=== PATIENT | female | born 1985 | race Caucasian/White ===

== ENCOUNTER 2022-12-25 18:34 | Inpatient (IN) ==
[2022-12-25] MEDS ORDERED: IOPAMIDOL 100 ML BOTTLE IV ONE (18:35)
[2022-12-25] MEDS ORDERED: diphenhydrAMINE 50 MG/ML VIAL IV ONE (20:31)
[2022-12-25] MEDS ORDERED: PROCHLORPERAZINE 10 MG/2 ML VIAL IV ONE (20:31)
--- NOTE | 2022-12-25 21:03 | Emergency Department Note ---
HPI General Chief complaint: Nausea/Vomiting/Diarrhea Stated complaint: N/V/D Time Seen by Provider: 12/25/22 20:26 Source: patient Mode of arrival: ambulatory Limitations: no limitations History of Present Illness HPI Narrative: Narrative: 37-year-old female presents the emergency department complaining of abdominal pain. As well as nausea vomiting. Says she been vomiting for the last 3 to 4 days as well as having loose stools. States that she went to a minor care today they gave her IV fluids and Zofran and then sent her home. She is worried that there may be something more going on that is worrying her. She is worried she may have an ileus or possibly an obstruction. She is having pain mainly in the right upper quadrant no pain anywhere else. No fevers or chills. Denying any other symptoms otherwise. Related Data Home Medications Medication Instructions Recorded Confirmed albuterol sulfate 90 mcg/actuation 1 inh inhalation ONCE 08/10/20 12/25/22 aerosol inhaler alprazolam 0.5 mg tablet (Xanax) 0.5 mg PO QHS PRN 08/10/20 12/25/22 ezetimibe 10 mg tablet (Zetia) 10 mg PO QDAY 08/10/20 12/25/22 insulin degludec 100 unit/mL (3 10 unit subcut QHS 08/10/20 12/25/22 mL) subcutaneous pen (Tresiba FlexTouch U-100 insulin) insulin lispro 100 unit/mL 1 sliding scale dose subcut 08/10/20 12/25/22 subcutaneous solution (Admelog USEASDIRECTD U-100 Insulin lispro) metoprolol succinate 50 mg 50 mg PO QDAY 08/10/20 12/25/22 tablet,extended release 24 hr Previous Rx's Medication Instructions Recorded loperamide 2 mg tablet (Imodium 2 mg PO Q4H PRN loose stool #30 12/25/22 A-D) tabs ondansetron 4 mg disintegrating 4 mg PO Q6H PRN nausea and 12/25/22 tablet vomiting #20 tabs Allergies Allergy/AdvReac Type Severity Reaction Status Date / Time latex Allergy Mild Swelling Verified 12/25/22 18:44 Review of Systems ROS ROS Narrative: Narrative: All systems ED: reviewed and negative except as stated. PFSH Narrative Patient History Narrative: Narrative: Medical/Surgical/Family History All Active Problems (Updated 12/25/22 @ 23:21 by Philipp Pope DO) DKA, type 1 (Acute) Acute hyperkalemia (Acute) Depression (Acute) History of appendectomy (Acute) Hx of cholecystectomy (Acute) Abdominal pain (Acute) Ventricular premature complex (Acute) Asthma (Acute) Bronchitis (Acute) Diabetes mellitus (Acute) Anxiety (Acute) Abnormal glucose (Acute) Medical History (Updated 12/25/22 @ 23:21 by Philipp Pope DO) Abdominal pain Abnormal glucose Anxiety Asthma Bronchitis Depression Diabetes mellitus Ventricular premature complex Surgical History History of appendectomy Hx of cholecystectomy Social History Smoking Status: Never smoker Alcohol Intake Frequency: 2+ drinks per day Substance Use: does not use Exam Narrative Narrative: Narrative: Vital signs noted General: Awake. Alert. No distress. Skin: Warm. Dry. No rash. HEENT: NCAT. PERRL. EOMI. No conjunctivitis. Membranes moist. Neck: Good ROM. No meningeal signs. No stridor. Cardiovascular: RRR. Respiratory: No respiratory distress. Gastrointestinal: Abdomen soft. Tenderness when palpating the right upper quadrant in the epigastrium no pain anywhere else on exam. No distention. Back: No deformity. No CVAT. Musculoskeletal: No tenderness. No swelling. No erythema. No edema. Good peripheral pulses x 4 Neurological: No focal neurological deficits observed. General Limitations: no limitations Course Vital Signs Vital signs: Vital Signs Temperature 97.3 F 12/25/22 18:40 Pulse Rate 99 H 12/25/22 18:40 Respiratory Rate 18 12/25/22 18:40 Blood Pressure 136/89 12/25/22 18:40 Pulse Oximetry (%) 98 12/25/22 18:40 Oxygen Delivery Method Room Air 12/25/22 18:40 Temperature 97.3 F 12/25/22 18:40 Pulse Rate 110 H 12/25/22 21:46 Respiratory Rate 25 H 12/25/22 22:41 Blood Pressure 137/122 12/25/22 21:46 Pulse Oximetry (%) 97 12/25/22 22:41 Oxygen Delivery Method Room Air 12/25/22 18:40 [facility] Narrative Medical decision making narrative: Narrative: Patient presents to the emergency department complaining of epigastric and right upper quadrant pain. She has had a cholecystectomy she states. We will go ahead and get a CBC, CMP as well as a lipase as well as a CT of the abdomen pelvis rule out any other acute pathology. Where about possible ileus, obstruction, gastroenteritis, peptic ulcer, perforation of the abdomen. Patient given Compazine and Benadryl for nausea and vomiting. And Toradol for pain control. I did personally review and interpret the labs. CBC was unremarkable. CMP showed sodium of 126 that is normal when corrected with a glucose about 130. Potassium is elevated to 6.3, chloride 93 CO2 is 4 with an anion gap of 29. Glucose elevated to 334. Based on these findings and actually were about patient being in DKA so added on a VBG and lactate lactate is mildly elevated at 2.1 but patient's pH is 6.88. Based on this I went ahead and got an EKG as well she does have peaked T waves so I went ahead and stabilize the cardiac membrane by giving calcium gluconate IV as well as giving patient 10 units of insulin IV to which also help with her DKA as well as 10 of 1 hour albuterol to help with the potassium. I also ordered a beta hydroxybutyrate for ketones which I imagine are elevated. Patient is received a total of 2 L of IV fluids. And I will also start patient on insulin drip. Patient will be need to be admitted. I did personally review and interpret the CT and I did not see any acute findings. Direct radiology did read the CT as well and they actually showed that there is scattered colonic diverticula without CT evidence of diverticulitis and there is nonspecific bowel wall thickening along the colon which may be related to incomplete distention versus mild colitis. I do not think that is what is causing patient's abdominal pain actually think the DKA is was causing the abdominal pain. Patient will need to be admitted for further care. I spoke with Dr. Leonard who has agreed to admit the patient. 12-lead EKG interpretation: EKG done at 2255, and interpreted by myself and shows sinus tachycardia at a rate of 134, MT interval 83, QRS 84, QTc 410. There is no acute ST changes obvious hyperacute T waves no other signs of ischemia. No signs of hypertrophy, heart strain, heart block. No WPW/Brugada/HOCM. Impression is sinus tachycardia with hyperacute T waves but no ischemia. ECG rhythm strip interpretation: Patient was placed on the gambling monitor and I did personally review and interpret the ECG rhythm strip as sinus tachycardia with hyperacute T waves but no ectopy Total critical care time of 45 min including performance of history and physical exam, review of results, re-examinations, time spent documenting, order manager, review of old records, discussions with patient and family, discussions with oracle application consultant(s), discussion with admitting physician, completion of admission/transfer paperwork. This does not include time for any separately documented procedures.. Lab Data 12/25/22 21:04 12/25/22 21:04 Labs: Lab Results 12/25/22 12/25/22 12/25/22 Range/Units 21: 21: 21:05 WBC 9.4 (4.5-11.0) K/mcL RBC 5.21 (3.59-5.38) M/mcL Hgb 16.5 H (11.2-15.7) g/dL Hct 52.7 H (34.1-44.9) % POC Hct 53.0 H (36-48) MCV 101.2 H (80.0-100.0) fL MCH 31.7 (26.0-34.0) pg MCHC 31.3 (31.0-36.0) g/dL RDW 11.6 (11.5-14.5) % Plt Count 168 (140-440) K/mcL MPV 10.9 (8.8-12.5) fL Immature Gran % (Auto) 1.3 H (0.0-0.5) % Neut % (Auto) 66.7 (38.0-78.0) % Lymph % (Auto) 21.2 (15.5-49.0) % [place] % (Auto) 9.9 (1.0-12.0) % Eos % (Auto) 0.1 (0.0-7.0) % Baso % (Auto) 0.8 (0.0-2.0) % Lymph # (Auto) 2.00 (1.50-4.80) K/mcL [place] # (Auto) 0.93 H (0.10-0.90) K/mcL Eos # (Auto) 0.01 (0.00-0.70) K/mcL Baso # (Auto) 0.08 (0.00-0.30) K/mcL Immature Gran # 0.12 H (0.00-0.05) K/mcl Absolute Neutrophils 6.30 (1.80-8.00) K/mcL POC VBG pH (7.32-7.42) POC VBG pCO2 at Temp (41-51) POC VBG pO2 (25-40) POC VBG HCO3 (24-28) POC VBG Total CO2 (25-29) POC Venous O2 Sat (40-70) POC VBG Base Excess (-2-2) VBG Lactic Acid (0.5-2) POC Sodium 130 L (133-145) Sodium 126 L (133-145) mmol/L POC Potassium 6.3 H* (3.3-5.1) Potassium 6.3 H* (3.3-5.1) mmol/L POC Chloride 111 H (96-108) Chloride 93 L (96-108) mmol/L Carbon Dioxide 4 L* (22-30) mmol/L POC Total CO2 7.0 L* (22-30) Anion Gap 29.0 H (8.0-16.0) POC Anion Gap 19.0 H (8.0-16.0) POC BUN 14 (6-20) BUN 12 (6-20) mg/dL Creatinine 0.9 (0.6-1.1) mg/dL POC Creatinine 0.6 (0.6-1.2) GFR Calculation 83 Glucose 334 H (70-105) mg/dL POC Glucose 331 H (70-105) Calcium 9.4 (8.6-10.4) mg/dL POC WB Ioniz Calcium 1.19 (1.16-1.32) Total Bilirubin 0.8 (0.1-1.0) mg/dL AST 44 H (<32) U/L ALT 46 H (<40) U/L Alkaline Phosphatase 116 (39-117) U/L Total Protein 8.8 H (5.9-8.4) gm/dL Albumin 5.3 H (3.2-5.2) gm/dL Globulin 3.5 (2.2-3.7) gm/dL Albumin/Globulin Ratio 1.5 (1.0-2.3) Lipase 22 (7-60) U/L 06/05/23 06/05/23 06/05/23 Range/Units 21:24 21:42 23:00 WBC (4.5-11.0) K/mcL RBC (3.59-5.38) M/mcL Hgb (11.2-15.7) g/dL Hct (34.1-44.9) % POC Hct 53.0 H 52.0 H (36-48) MCV (80.0-100.0) fL MCH (26.0-34.0) pg MCHC (31.0-36.0) g/dL RDW (11.5-14.5) % Plt Count (140-440) K/mcL MPV (8.8-12.5) fL Immature Gran % (Auto) (0.0-0.5) % Neut % (Auto) (38.0-78.0) % Lymph % (Auto) (15.5-49.0) % [place] % (Auto) (1.0-12.0) % Eos % (Auto) (0.0-7.0) % Baso % (Auto) (0.0-2.0) % Lymph # (Auto) (1.50-4.80) K/mcL [place] # (Auto) (0.10-0.90) K/mcL Eos # (Auto) (0.00-0.70) K/mcL Baso # (Auto) (0.00-0.30) K/mcL Immature Gran # (0.00-0.05) K/mcl Absolute Neutrophils (1.80-8.00) K/mcL POC VBG pH 6.88 L* (7.32-7.42) POC VBG pCO2 at Temp 25.4 L (41-51) POC VBG pO2 32 (25-40) POC VBG HCO3 4.8 L* (24-28) POC VBG Total CO2 6.0 L (25-29) POC Venous O2 Sat 30.0 L (40-70) POC VBG Base Excess -28.0 L (-2-2) VBG Lactic Acid 2.3 H (0.5-2) POC Sodium 123 L 131 L (133-145) Sodium (133-145) mmol/L POC Potassium > 9.0 H* 6.0 H* (3.3-5.1) Potassium (3.3-5.1) mmol/L POC Chloride 110 H 109 H (96-108) Chloride (96-108) mmol/L Carbon Dioxide (22-30) mmol/L POC Total CO2 8.0 L* 8.0 L* (22-30) Anion Gap (8.0-16.0) POC Anion Gap TNP 21.0 H (8.0-16.0) POC BUN 20 13 (6-20) BUN (6-20) mg/dL Creatinine (0.6-1.1) mg/dL POC Creatinine 0.7 0.6 (0.6-1.2) GFR Calculation Glucose (70-105) mg/dL POC Glucose 333 H 355 H (70-105) Calcium (8.6-10.4) mg/dL POC WB Ioniz Calcium 1.04 L 1.19 (1.16-1.32) Total Bilirubin (0.1-1.0) mg/dL AST (<32) U/L ALT (<40) U/L Alkaline Phosphatase (39-117) U/L Total Protein (5.9-8.4) gm/dL Albumin (3.2-5.2) gm/dL Globulin (2.2-3.7) gm/dL Albumin/Globulin Ratio (1.0-2.3) Lipase (7-60) U/L Discharge Plan Patient/Caregiver Discharge Instructions Pt seen by WAIST PLEATER/PA only: No Clinical Impression: DKA, type 1, Acute hyperkalemia Activity: increase activity as tolerated Patient Disposition: Xfer As Inpt ([facility]) Condition: Critical Follow up with: Kady Warren NP-C [Primary Care Provider] - Prescriptions: No Action loperamide [Imodium A-D] 2 mg tablet 2 mg PO Q4H PRN (Reason: loose stool) Qty: 30 0RF Rx Instructions: administer after each loose stool until symptoms controlled; do not exceed 8 mg per 24 hrs ondansetron 4 mg tablet,disintegrating 4 mg PO Q6H PRN (Reason: nausea and vomiting) Qty: 20 0RF metoprolol succinate 50 mg tablet extended release 24 hr 50 mg PO QDAY ezetimibe [Zetia] 10 mg tablet 10 mg PO QDAY alprazolam [Xanax] 0.5 mg tablet 0.5 mg PO QHS PRN albuterol sulfate 90 mcg/actuation HFA aerosol inhaler 1 inh INHALATION ONCE Tresiba FlexTouch U-100 100 unit/mL (3 mL) insulin pen 10 unit SUB-Q QHS insulin lispro [Admelog U-100 Insulin lispro] 100 unit/mL solution 1 sliding scale dose SUB-Q USEASDIRECTD
[2022-12-25 21:09] LABS: POC Calcium, Ionized 1.19 (1.16-1.32); POC Creatinine 0.6 (0.6-1.2); POC Potassium 6.3 (3.3-5.1)
[2022-12-25 21:28] LABS: POC Blood Urea Nitrogen 20 (6-20); POC Calcium, Ionized 1.04 (1.16-1.32); POC Chloride 110 (96-108); POC Creatinine 0.7 (0.6-1.2); POC Glucose, Random 333 (70-105); POC Potassium > 9.0 (3.3-5.1); POC Sodium 123 (133-145)
[2022-12-25 21:48] LABS: POC Calcium, Ionized 1.19 (1.16-1.32); POC Creatinine 0.6 (0.6-1.2)
[2022-12-25 22:17] LABS: Basophils # (Auto) 0.08 K/mcL (0.00-0.30); Basophils % (Auto) 0.8 % (0.0-2.0); Eosinophils # (Auto) 0.01 K/mcL (0.00-0.70); Eosinophils % (Auto) 0.1 % (0.0-7.0); Hematocrit 52.7 % (34.1-44.9); Hemoglobin 16.5 g/dL (11.2-15.7); Lymphocytes % (Auto) 21.2 % (15.5-49.0); Mean Cell Volume 101.2 fL (80.0-100.0); Mean Corpuscular HGB Conc 31.3 g/dL (31.0-36.0); Mean Platelet Volume 10.9 fL (8.8-12.5); Monocytes # (Auto) 0.93 K/mcL (0.10-0.90); Monocytes % (Auto) 9.9 % (1.0-12.0); Neutrophils % (Auto) 66.7 % (38.0-78.0); Platelet Count 168 K/mcL (140-440); RBC 5.21 M/mcL (3.59-5.38); Red Cell Distribution Width 11.6 % (11.5-14.5); WBC 9.4 K/mcL (4.5-11.0)
[2022-12-25 22:35] LABS: ALT/SGPT 46 U/L (<40); AST/SGOT 44 U/L (<32); Albumin 5.3 gm/dL (3.2-5.2); Albumin/Globulin Ratio 1.5 (1.0-2.3); Alkaline Phosphatase 116 U/L (39-117); Bilirubin,Total 0.8 mg/dL (0.1-1.0); Blood Urea Nitrogen 12 mg/dL (6-20); Calcium 9.4 mg/dL (8.6-10.4); Carbon Dioxide 4 mmol/L (22-30); Chloride 93 mmol/L (96-108); Globulin 3.5 gm/dL (2.2-3.7); Glomerular Filtration Rate 83; Glucose 334 mg/dL (70-105)
[2022-12-25] MEDS ORDERED: CALCIUM GLUCONATE 7 MEQ in DEXTROSE 5% IN WATER 50 ML IV ONE (22:52)
[2022-12-25] MEDS ORDERED: 0.9 % SODIUM CHLORIDE 1,000 ML IV ONE (22:52)
[2022-12-25] MEDS ORDERED: ALBUTEROL SULFATE 2.5 MG/3 ML NEBULIZER NEB ONE (22:52)
[2022-12-25] MEDS ORDERED: INSULIN REGULAR, HUMAN 1 UNIT/0.01 ML UNIT IV ONE (22:52)
[2022-12-25] MEDS ORDERED: CALCIUM GLUCONATE 4.65 MEQ/10 ML VIAL IV ONE (22:59)
[2022-12-25] MEDS ORDERED: INSULIN REGULAR, HUMAN 1 UNIT/0.01 ML UNIT ONE (23:22)
[2022-12-25 23:27] LABS: Appearance,Urine CLEAR (Clear); Bilirubin,Urine Negative (Negative); Color,Urine YELLOW; Culture Indicated,Urine No; Glucose,Urine (UA) >=500 mg/dL (Negative); Ketones,Urine 80 mg/dL (Negative); Leukocyte Esterase,Urine Negative /uL (Negative); Mucus,Urine FEW /hpf; Nitrate,Urine Negative (Negative); Protein,Urine 100 mg/dL (Negative); Urine Hyaline Cast 5 /lph (0-2); Urine RBC < 1 /hpf (0-3); Urine Squamous Epithelial Cell 2 /hpf (0-4); Urine WBC 1 /hpf (0-4); Urobilinogen,Urine Negative
[2022-12-25] MEDS ORDERED: MAGNESIUM SULFATE 2 GM/50 ML BAG IV PRN (23:34)
[2022-12-26 00:17] LABS: Beta Hydroxybutyrate 8.65 mmol/L (<0.27)
[2022-12-26] MEDS: INSULIN REGULAR, HUMAN 50 UNIT in 0.9 % SODIUM CHLORIDE 99.5 ML IV SCH ×6 (00:20→23:18)
[2022-12-26] MEDS: 0.9 % SODIUM CHLORIDE 1,000 ML IV SCH ×5 (00:25→20:21)
[2022-12-26] MEDS ORDERED: LORazepam 2 MG/ML VIAL IV PRN (00:43)
[2022-12-26] MEDS ORDERED: chlordiazePOXIDE 25 MG CAPSULE PO ONE ×2 (00:44→00:50)
[2022-12-26] MEDS ORDERED: LORazepam 2 MG/ML VIAL ONE (00:51)
[2022-12-26] MEDS ORDERED: HALOPERIDOL LACTATE 5 MG/ML VIAL IV ONE (01:00)
[2022-12-26] MEDS ORDERED: HALOPERIDOL LACTATE 5 MG/ML VIAL ONE (01:03)
[2022-12-26] MEDS ORDERED: SODIUM BICARBONATE 50 MEQ/50 ML VIAL IV ONE ×3 (01:16→03:48)
[2022-12-26] MEDS ORDERED: SODIUM BICARBONATE 50 MEQ/50 ML VIAL ONE ×4 (01:26→04:04)
[2022-12-26 01:32] LABS: POC Blood Urea Nitrogen 13 (6-20); POC CO2 < 5.0 (22-30); POC Calcium, Ionized 1.27 (1.16-1.32); POC Chloride 115 (96-108); POC Creatinine 0.7 (0.6-1.2); POC Glucose, Random 476 (70-105); POC Potassium 4.7 (3.3-5.1); POC Sodium 134 (133-145)
[2022-12-26 01:53] LABS: Amphetamine Screen,Urine None detected; Barbiturate Screen,Urine None detected; Benzodiazepines Screen,Urine Suspect positive; Cannabinoid Screen,Urine None detected; Cocaine Screen,Urine None detected; Opiate Screen,Urine None detected; Oxycodone, Urine Screen None detected; Phencyclidine Screen,Urine None detected
[2022-12-26] MEDS ORDERED: LACTATED RINGERS 1,000 ML IV ONE (01:55)
--- NOTE | 2022-12-26 02:16 | Internal Med History&Physical ---
HPI History of Present Illness Patient information: Note initiated : 12/26/22 at 1:57 am Service Date, if different from initiated Date: [] Patient: Lou Baum a 37 y/o F admitted on 12/26/22 for N/V/D. Chief Complaint: [] History of present illness: Ms. Baum is a 37 year old F Presents to minor care for nausea vomiting and lightheadedness and some mucousy stool. Also found to have some mildly elevated sugars. Was treated sent home. Patient came back to the ED complaining of continued abdominal pain nausea vomiting feeling like she is not getting any better. History is obtained from the chart as patient is encephalopathic at this time. Sounds like she has been vomiting for 3 to 4 days and having loose stools. Pain was noted in the right upper quadrant. In the ED she was mildly tachycardic and mildly tachypneic. Found to be in DKA. With a blood glucose 343 initially. Sodium was 126 but not corrected for hyperglycemia. She had a potassium of 6.3 and a bicarb of 4. Mild transaminitis. Beta hydroxybutyric acid 8.65. Lactate 2.3 initially but did increase. She was treated for hyper per kalemia in the ED. Given several liters of IV fluids. Insulin drip ordered but never started until she got to the ICU which is about the time that she started becoming agitated and restless tachycardic and tachypneic. Also found out that she was a heavy drinker using whiskey daily. Patient put on CIWA protocol and given IV Ativan. Her mental status continued to worsen and she became continually tachycardic and tachypneic. Stat VBG showed a pH of 6.75. Blood glucose had also been increasing as the insulin drip had not been started as ordered. Stat bicarb 3 Amps given. Shortly thereafter patient's vital signs and mentation started to gradually improved. Follow-up chemistry showed sodium at 134 and potassium down to 4.7. We will need to follow chemistry closely and may add potassium to IV fluids. preg screen neg Update: pt developed fever this morning, no leukcytosis, BC pending, no respiratory symptoms and UA not indicative of infection, ?etoh w/d, CT brain/abd/pelvis no acute but with fatty liver. pt drinks 2-6 drinks whiskey daily. mentation gradually improving, acid-base status responding to treatment, still critical state, blood pressure briefly hypotensive episodes, monitoring View of system review of Systems: Unable to gather accurate ROS given mentation PHYSICAL EXAM on admit General: Restless, mild acute Distress Eyes/N/T: EOMI, no scleral icterus, PERRL, dry MM Head/Neck: neck supple, full ROM, normocephalic atraumatic CV: Tachycardic but regular, No murmurs, normal s1/s2 Pulm: Clear b/l, no wheezing/rhonchi/rales, no respiratory distress Abd: soft, nontender, +BS x4 Ext: no clubbing/cyanosis/edema, nontender Neuro: Patient restless and poorly responsive but does follow some commands to partially open eyes to voice and squeezing hands to command. Moves all extremities spontaneously, no noticeable focal deficit Psychiatric: Skin: warm/dry, normal color PFSH PFSH All Active Problems (Updated 12/25/22 @ 23:21 by Philipp Pope DO) DKA, type 1 (Acute) Acute hyperkalemia (Acute) Depression (Acute) History of appendectomy (Acute) Hx of cholecystectomy (Acute) Abdominal pain (Acute) Ventricular premature complex (Acute) Asthma (Acute) Bronchitis (Acute) Diabetes mellitus (Acute) Anxiety (Acute) Abnormal glucose (Acute) Medical History (Updated 12/25/22 @ 23:21 by Philipp Pope DO) Abdominal pain Abnormal glucose Anxiety Asthma Bronchitis Depression Diabetes mellitus Ventricular premature complex Surgical History History of appendectomy Hx of cholecystectomy Social History smoking status: Never smoker alcohol intake frequency: 2+ drinks per day substance use type: does not use MEDS/ALLERGIES Home Medications and Allergies Home Medications Medication Instructions Recorded Confirmed Type albuterol sulfate 90 mcg/actuation 1 inh inhalation ONCE 08/10/20 12/26/22 History aerosol inhaler alprazolam 0.5 mg tablet (Xanax) 0.5 mg PO QHS PRN Anxiety 08/10/20 12/26/22 History ezetimibe 10 mg tablet (Zetia) 10 mg PO QDAY 08/10/20 12/26/22 History insulin degludec 100 unit/mL (3 10 unit subcut QHS 08/10/20 12/26/22 History mL) subcutaneous pen (Tresiba FlexTouch U-100 insulin) insulin lispro 100 unit/mL 1 sliding scale dose subcut 08/10/20 12/26/22 History subcutaneous solution (Admelog USEASDIRECTD U-100 Insulin lispro) metoprolol succinate 50 mg 50 mg PO QDAY 08/10/20 12/26/22 History tablet,extended release 24 hr loperamide 2 mg tablet (Imodium 2 mg PO Q4H PRN loose stool #30 12/25/22 12/26/22 Rx A-D) tabs ondansetron 4 mg disintegrating 4 mg PO Q6H PRN nausea and 12/25/22 12/26/22 Rx tablet vomiting #20 tabs Allergies Allergy/AdvReac Type Severity Reaction Status Date / Time latex Allergy Mild Swelling Verified 12/25/22 18:44 EXAM Constitutional Vitals: Temp Pulse Resp BP Pulse Ox O2 Del Method 96.9 F L 158 H 34 H 128/107 100 Room Air 12/26/22 00:47 12/26/22 01:39 12/26/22 01:39 12/26/22 01:31 12/26/22 01:39 12/26/22 00:47 DATA Data Completed and Pending Labs: Labs from last 24 hours 12/26/22 12/26/22 12/26/22 01:29 01:23 01:20 WBC RBC Hgb Hct POC Hct 51.0 H MCV MCH MCHC RDW Plt Count MPV Immature Gran % (Auto) Neut % (Auto) Lymph % (Auto) [place] % (Auto) Eos % (Auto) Baso % (Auto) Lymph # (Auto) [place] # (Auto) Eos # (Auto) Baso # (Auto) Immature Gran # Absolute Neutrophils POC VBG pH 6.75 L* POC VBG pCO2 at Temp 14.2 L* POC VBG pO2 80 H POC VBG HCO3 2.0 L* POC VBG Total CO2 < 5.0 L POC Venous O2 Sat 77.0 H POC VBG Base Excess < -30.0 L* VBG Lactic Acid 4.8 H* POC Sodium 134 Sodium POC Potassium 4.7 Potassium POC Chloride 115 H Chloride Carbon Dioxide POC Total CO2 < 5.0 L* Anion Gap POC Anion Gap TNP POC BUN 13 BUN Creatinine POC Creatinine 0.7 GFR Calculation Glucose POC Glucose 476 H* Osmolality Pending Calcium POC WB Ioniz Calcium 1.27 Magnesium Total Bilirubin AST ALT Alkaline Phosphatase Total Protein Albumin Globulin Albumin/Globulin Ratio Lipase Beta-Hydroxybutyrate Prolactin Urine Color Urine Appearance Urine pH Ur Specific [place] Urine Protein Urine Glucose (UA) Urine Ketones Urine Occult Blood Urine Nitrate Urine Bilirubin Urine Urobilinogen Ur Leukocyte Esterase Urine RBC Urine WBC Ur Squamous Epith Cells Urine Bacteria Hyaline Casts Urine Mucus Ur Culture Indicated? Urine Opiates Screen Ur Opiates Confirm Ur Oxycodone Screen U Oxycod/Oxymor Confirm Urine Methadone Screen Ur Methadone Confirm Ur Barbiturates Screen Ur Barbiturate Confirm Ur Phencyclidine Scrn Urine PCP Confirm Ur Amphetamines Screen U Amphetamines Confirm U Benzodiazepines Scrn Ur Benzodiazepine, Qnt Urine Cocaine Screen Urine Cocaine Confirm U Cannabinoids Confirm U Marijuana (THC) Screen 12/26/22 12/25/22 12/25/22 01:20 23:00 22:00 WBC RBC Hgb Hct POC Hct MCV MCH MCHC RDW Plt Count MPV Immature Gran % (Auto) Neut % (Auto) Lymph % (Auto) [place] % (Auto) Eos % (Auto) Baso % (Auto) Lymph # (Auto) [place] # (Auto) Eos # (Auto) Baso # (Auto) Immature Gran # Absolute Neutrophils POC VBG pH 6.88 L* POC VBG pCO2 at Temp 25.4 L POC VBG pO2 32 POC VBG HCO3 4.8 L* POC VBG Total CO2 6.0 L POC Venous O2 Sat 30.0 L POC VBG Base Excess -28.0 L VBG Lactic Acid 2.3 H POC Sodium Sodium POC Potassium Potassium POC Chloride Chloride Carbon Dioxide POC Total CO2 Anion Gap POC Anion Gap POC BUN BUN Creatinine POC Creatinine GFR Calculation Glucose POC Glucose Osmolality Calcium POC WB Ioniz Calcium Magnesium 2.5 Total Bilirubin AST ALT Alkaline Phosphatase Total Protein Albumin Globulin Albumin/Globulin Ratio Lipase Beta-Hydroxybutyrate Prolactin Pending Urine Color Urine Appearance Urine pH Ur Specific [place] Urine Protein Urine Glucose (UA) Urine Ketones Urine Occult Blood Urine Nitrate Urine Bilirubin Urine Urobilinogen Ur Leukocyte Esterase Urine RBC Urine WBC Ur Squamous Epith Cells Urine Bacteria Hyaline Casts Urine Mucus Ur Culture Indicated? Urine Opiates Screen Ur Opiates Confirm Ur Oxycodone Screen U Oxycod/Oxymor Confirm Urine Methadone Screen Ur Methadone Confirm Ur Barbiturates Screen Ur Barbiturate Confirm Ur Phencyclidine Scrn Urine PCP Confirm Ur Amphetamines Screen U Amphetamines Confirm U Benzodiazepines Scrn Ur Benzodiazepine, Qnt Urine Cocaine Screen Urine Cocaine Confirm U Cannabinoids Confirm U Marijuana (THC) Screen 12/25/22 12/25/22 12/25/22 22:00 21:56 21:56 WBC RBC Hgb Hct POC Hct MCV MCH MCHC RDW Plt Count MPV Immature Gran % (Auto) Neut % (Auto) Lymph % (Auto) [place] % (Auto) Eos % (Auto) Baso % (Auto) Lymph # (Auto) [place] # (Auto) Eos # (Auto) Baso # (Auto) Immature Gran # Absolute Neutrophils POC VBG pH POC VBG pCO2 at Temp POC VBG pO2 POC VBG HCO3 POC VBG Total CO2 POC Venous O2 Sat POC VBG Base Excess VBG Lactic Acid POC Sodium Sodium POC Potassium Potassium POC Chloride Chloride Carbon Dioxide POC Total CO2 Anion Gap POC Anion Gap POC BUN BUN Creatinine POC Creatinine GFR Calculation Glucose POC Glucose Osmolality Calcium POC WB Ioniz Calcium Magnesium Total Bilirubin AST ALT Alkaline Phosphatase Total Protein Albumin Globulin Albumin/Globulin Ratio Lipase Beta-Hydroxybutyrate 8.65 H Prolactin Urine Color Yellow Urine Appearance Clear Urine pH 5.0 Ur Specific [place] 1.020 Urine Protein 100 A Urine Glucose (UA) >=500 A Urine Ketones 80 A Urine Occult Blood 0.20 Urine Nitrate Negative Urine Bilirubin Negative Urine Urobilinogen Negative Ur Leukocyte Esterase Negative Urine RBC < 1 Urine WBC 1 Ur Squamous Epith Cells 2 Urine Bacteria None Hyaline Casts 5 H Urine Mucus Few A Ur Culture Indicated? No Urine Opiates Screen None detected Ur Opiates Confirm TNP Ur Oxycodone Screen None detected U Oxycod/Oxymor Confirm TNP Urine Methadone Screen None detected Ur Methadone Confirm TNP Ur Barbiturates Screen None detected Ur Barbiturate Confirm TNP Ur Phencyclidine Scrn None detected Urine PCP Confirm TNP Ur Amphetamines Screen None detected U Amphetamines Confirm TNP U Benzodiazepines Scrn Suspect positive A Ur Benzodiazepine, Qnt Pending Urine Cocaine Screen None detected Urine Cocaine Confirm TNP U Cannabinoids Confirm TNP U Marijuana (THC) Screen None detected 12/25/22 12/25/22 12/25/22 21:42 21:24 21:05 WBC RBC Hgb Hct POC Hct 52.0 H 53.0 H 53.0 H MCV MCH MCHC RDW Plt Count MPV Immature Gran % (Auto) Neut % (Auto) Lymph % (Auto) [place] % (Auto) Eos % (Auto) Baso % (Auto) Lymph # (Auto) [place] # (Auto) Eos # (Auto) Baso # (Auto) Immature Gran # Absolute Neutrophils POC VBG pH POC VBG pCO2 at Temp POC VBG pO2 POC VBG HCO3 POC VBG Total CO2 POC Venous O2 Sat POC VBG Base Excess VBG Lactic Acid POC Sodium 131 L 123 L 130 L Sodium POC Potassium 6.0 H* > 9.0 H* 6.3 H* Potassium POC Chloride 109 H 110 H 111 H Chloride Carbon Dioxide POC Total CO2 8.0 L* 8.0 L* 7.0 L* Anion Gap POC Anion Gap 21.0 H TNP 19.0 H POC BUN 13 20 14 BUN Creatinine POC Creatinine 0.6 0.7 0.6 GFR Calculation Glucose POC Glucose 355 H 333 H 331 H Osmolality Calcium POC WB Ioniz Calcium 1.19 1.04 L 1.19 Magnesium Total Bilirubin AST ALT Alkaline Phosphatase Total Protein Albumin Globulin Albumin/Globulin Ratio Lipase Beta-Hydroxybutyrate Prolactin Urine Color Urine Appearance Urine pH Ur Specific [place] Urine Protein Urine Glucose (UA) Urine Ketones Urine Occult Blood Urine Nitrate Urine Bilirubin Urine Urobilinogen Ur Leukocyte Esterase Urine RBC Urine WBC Ur Squamous Epith Cells Urine Bacteria Hyaline Casts Urine Mucus Ur Culture Indicated? Urine Opiates Screen Ur Opiates Confirm Ur Oxycodone Screen U Oxycod/Oxymor Confirm Urine Methadone Screen Ur Methadone Confirm Ur Barbiturates Screen Ur Barbiturate Confirm Ur Phencyclidine Scrn Urine PCP Confirm Ur Amphetamines Screen U Amphetamines Confirm U Benzodiazepines Scrn Ur Benzodiazepine, Qnt Urine Cocaine Screen Urine Cocaine Confirm U Cannabinoids Confirm U Marijuana (THC) Screen 12/25/22 12/25/22 21:04 21:04 WBC 9.4 RBC 5.21 Hgb 16.5 H Hct 52.7 H POC Hct MCV 101.2 H MCH 31.7 MCHC 31.3 RDW 11.6 Plt Count 168 MPV 10.9 Immature Gran % (Auto) 1.3 H Neut % (Auto) 66.7 Lymph % (Auto) 21.2 [place] % (Auto) 9.9 Eos % (Auto) 0.1 Baso % (Auto) 0.8 Lymph # (Auto) 2.00 [place] # (Auto) 0.93 H Eos # (Auto) 0.01 Baso # (Auto) 0.08 Immature Gran # 0.12 H Absolute Neutrophils 6.30 POC VBG pH POC VBG pCO2 at Temp POC VBG pO2 POC VBG HCO3 POC VBG Total CO2 POC Venous O2 Sat POC VBG Base Excess VBG Lactic Acid POC Sodium Sodium 126 L POC Potassium Potassium 6.3 H* POC Chloride Chloride 93 L Carbon Dioxide 4 L* POC Total CO2 Anion Gap 29.0 H POC Anion Gap POC BUN BUN 12 Creatinine 0.9 POC Creatinine GFR Calculation 83 Glucose 334 H POC Glucose Osmolality Calcium 9.4 POC WB Ioniz Calcium Magnesium Total Bilirubin 0.8 AST 44 H ALT 46 H Alkaline Phosphatase 116 Total Protein 8.8 H Albumin 5.3 H Globulin 3.5 Albumin/Globulin Ratio 1.5 Lipase 22 Beta-Hydroxybutyrate Prolactin Urine Color Urine Appearance Urine pH Ur Specific [place] Urine Protein Urine Glucose (UA) Urine Ketones Urine Occult Blood Urine Nitrate Urine Bilirubin Urine Urobilinogen Ur Leukocyte Esterase Urine RBC Urine WBC Ur Squamous Epith Cells Urine Bacteria Hyaline Casts Urine Mucus Ur Culture Indicated? Urine Opiates Screen Ur Opiates Confirm Ur Oxycodone Screen U Oxycod/Oxymor Confirm Urine Methadone Screen Ur Methadone Confirm Ur Barbiturates Screen Ur Barbiturate Confirm Ur Phencyclidine Scrn Urine PCP Confirm Ur Amphetamines Screen U Amphetamines Confirm U Benzodiazepines Scrn Ur Benzodiazepine, Qnt Urine Cocaine Screen Urine Cocaine Confirm U Cannabinoids Confirm U Marijuana (THC) Screen A/P Narrative A/P Narrative: A: *DKA(DM1), Severe: -a1c 9.9 *Severe AG Met acidosis with lactic acidosis: 2/2 above *Metabolic encephalopathy, severe: 2/2 above, ?seizure o/n *N/V/Diarrhea/Abd pain: 2/2 above -CT imaging unremarkable except for fatty liver *Hyperkalemia: w/spiked t-waves, s/p treatment *Hyponatremia & severe Hypophosphatemia: *Volume depletion/hemoconcentration: *ETOH abuse: and suspected component of withdrawal -2 up to 6 drinks per day *HTN/HLD: *Anxiety/depression: On Ativan at home *h/o asthma: *Transaminitis: 2/2 fatty liver *Macrocytosis: Check B12/folate, likely etoh induced P: -s/p NS bolus, LR IVF, add KCl as needed, >NS IVF -insulin gtt until gap closed -q2h vgb and 2amps bicarb until pH>7.0 -Monitor renal function/UOP -Monitor and replace electrolytes as needed -UDS -CT brain -f/u bhb -monitor Lfts -CIWA, MVI/thiamine/folate, prn ativan -cont home BB, prn nebs -b12/folate -a1c -Home medication reconciliation -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
[2022-12-26] MEDS ORDERED: IPRATROPIUM/ALBUTEROL 3 ML AMPUL.NEB NEB PRN (02:23)
[2022-12-26] MEDS ORDERED: SENNOSIDES 1 TABLET PO PRN (02:23)
[2022-12-26] MEDS ORDERED: POLYETHYLENE GLYCOL 3350 17 GM PACKET PO PRN (02:23)
[2022-12-26] MEDS ORDERED: ONDANSETRON 4 MG/2 ML VIAL IV PRN (02:23)
[2022-12-26] MEDS ORDERED: ACETAMINOPHEN 325 MG TABLET PO PRN (02:23)
[2022-12-26] MEDS ORDERED: POTASSIUM CHLORIDE 20 MEQ TABLET PO PRN (02:23)
[2022-12-26] MEDS ORDERED: POTASSIUM CHLORIDE 40 MEQ in DEXTROSE 5% IN WATER 500 ML IV PRN (02:23)
[2022-12-26] MEDS ORDERED: MAGNESIUM SULFATE 2 GM/50 ML BAG IV PRN (02:23)
[2022-12-26] MEDS: THIAMINE 100 MG in 0.9 % SODIUM CHLORIDE 50 ML IV SCH ×2 (02:36→08:12)
[2022-12-26] MEDS: DEXTROSE 5%-NS 1,000 ML IV SCH ×2 (02:36→05:10)
[2022-12-26 03:48] LABS: POC Calcium, Ionized 1.1 (1.16-1.32); POC Creatinine 0.7 (0.6-1.2); POC Potassium 4.9 (3.3-5.1)
--- NOTE | 2022-12-26 04:59 | Cat Scan Report ---
INDICATION: altered mental status COMPARISON: None. TECHNIQUE: Axial noncontrast-enhanced images through the brain. Sagittally and coronally reformatted images. FINDINGS: Examination was initially interpreted by [facility] This patient is unable to hold still and there are some motion induced artifact. Cerebral hemispheres:Negative. No intra-axial abnormality. No intra-axial hematoma. No localized mass effect.Brain volume is within normal limits for age. Periventricular white matter is negative without significant attenuation abnormality. Brainstem and cerebellum:No intra-axial abnormality Extra-axial:No acute hemorrhage. No subdural or epidural hematoma. No subarachnoid hemorrhage. Basilar cisterns are normal Calvarial:No calvarial fracture. No lytic lesion Temporal bones are negative. No destructive lesions Soft tissue, orbits, sinuses:Orbits and visualized facial soft tissues and paranasal sinuses are negative IMPRESSION: Negative noncontrast enhanced brain CT scan The exam was performed using radiation dose optimization techniques including, but not limited to, automated exposure control, adjustment of the mA and/or kV according to patient size and use of iterative reconstruction technique. Interpreted and Authenticated by: Kristofer Darling 12/26/22
[2022-12-26] MEDS ORDERED: INSULIN REGULAR, HUMAN 1 UNIT/0.01 ML UNIT ONE ×2 (05:35→23:13)
[2022-12-26 05:37] LABS: POC Calcium, Ionized 1.14 (1.16-1.32); POC Creatinine 0.6 (0.6-1.2); POC Potassium 3.9 (3.3-5.1)
--- NOTE | 2022-12-26 05:37 | Cat Scan Report ---
INDICATION: epigastric pain poss pancreatitis COMPARISON: Previous examination dated 04/22/2014 TECHNIQUE: Axial images were obtained through the abdomen and pelvis. Sagittally and coronally reformatted images. 70 mL Isovue 370 injected intravenously. Oral contrast material was not administered FINDINGS: Examination was initially interpreted by [facility] Lung bases:Negative. No pulmonary parenchymal nodule. No pleural fluid or pericardial fluid Liver:Low density liver consistent with hepatic steatosis. No focal mass. Liver contour is smooth Gallbladder, bilary:No calcified gallstones. No gallbladder wall thickening. No dilated intra or extrahepatic bile ducts. Spleen:No splenomegaly. Normal enhancement of splenic and portal veins. Pancreas:No pancreatic mass. No peripancreatic abnormality Adrenal glands:Negative Kidneys,ureters,bladder:No solid renal mass. No hydronephrosis. No obstructing or nonobstructing calculi. No hydroureter. No ureteral calculus. No bladder stone. No detectable bladder mass. Gastrointestinal:No detectable colonic mass. There is no diverticulitis. Negative small bowel. No mechanical small bowel obstruction. No bowel wall thickening. No focal abnormality. Negative stomach and duodenum. No focal abnormality. Appendix: The appendix is apparently removed. Patient gives a history of previous appendectomy. There is a small appendiceal stump with a 4 mm calcified abnormality consistent with appendicolith. No evidence for appendicitis. Vascular:Negative abdominal aorta. Superior mesenteric artery and celiac trunk are normal. Normal opacification of the inferior mesenteric artery Lymphatic:No retroperitoneal or mesenteric adenopathy Mesentery, peritoneum: No free intraperitoneal fluid. No mesenteric or retroperitoneal mass. No intra-abdominal abscess. Reproductive:Uterus is anteflexed. No adnexal mass Musculoskeletal:No lumbar compression fractures. Sacrum and pelvis are negative. No hip fracture. No abdominal wall or inguinal hernia IMPRESSION: 1. Hepatic steatosis 2. Previous cholecystectomy 3. Previous appendectomy 4. No acute abnormality The exam was performed using radiation dose optimization techniques including, but not limited to, automated exposure control, adjustment of the mA and/or kV according to patient size and use of iterative reconstruction technique. Interpreted and Authenticated by: Kristofer Darling 12/26/22
[2022-12-26] MEDS ORDERED: ACETAMINOPHEN 1,000 MG/100 ML BAG IV PRN (06:23)
[2022-12-26 06:30] LABS: Basophils # (Auto) 0.02 K/mcL (0.00-0.30); Basophils % (Auto) 0.2 % (0.0-2.0); Eosinophils # (Auto) 0 K/mcL (0.00-0.70); Eosinophils % (Auto) 0 % (0.0-7.0); Hematocrit 40.3 % (34.1-44.9); Hemoglobin 12.9 g/dL (11.2-15.7); Lymphocytes % (Auto) 9.1 % (15.5-49.0); Mean Cell Volume 98.3 fL (80.0-100.0); Mean Platelet Volume 9.6 fL (8.8-12.5); Monocytes # (Auto) 0.92 K/mcL (0.10-0.90); Monocytes % (Auto) 9.3 % (1.0-12.0); Neutrophils % (Auto) 80.8 % (38.0-78.0); Platelet Count 128 K/mcL (140-440); Red Cell Distribution Width 11.7 % (11.5-14.5); WBC 9.9 K/mcL (4.5-11.0)
--- NOTE | 2022-12-26 07:03 | EKG ---
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 Measurements Intervals [place] Rate: 105 P: 64 [place]: 134 QRS: 59 QRSD: 83 T: 46 QT: 310 QTc: 410 Interpretive Statements Sinus tachycardia Electronically Signed On 12-26-2022 7:03:46 PDT by Kristofer Evans M.D. /store/[email or web address]/[id number]
[2022-12-26] MEDS: PANTOPRAZOLE 40 MG VIAL IV SCH (07:17)
[2022-12-26] MEDS ORDERED: ALPRAZolam 0.5 MG TABLET PO PRN (08:06)
[2022-12-26] MEDS ORDERED: THIAMINE 100 MG/ML VIAL ONE (08:12)
[2022-12-26] MEDS: ENOXAPARIN 40 MG/0.4 ML SYRINGE SQ SCH (08:14)
[2022-12-26] MEDS: MULTIVIT,THER IRON,CA,FA & MIN 1 TABLET PO SCH (08:14)
[2022-12-26] MEDS: FOLIC ACID 1 MG TABLET PO SCH (08:14)
[2022-12-26 08:17] LABS: ALT/SGPT 39 U/L (<40); AST/SGOT 49 U/L (<32); Albumin/Globulin Ratio 1.5 (1.0-2.3); Alkaline Phosphatase 81 U/L (39-117); Bilirubin,Direct < 0.2 mg/dL (0-0.3); Bilirubin,Total 0.6 mg/dL (0.1-1.0); Blood Urea Nitrogen 9 mg/dL (6-20); Calcium 8.2 mg/dL (8.6-10.4); Carbon Dioxide 6 mmol/L (22-30); Chloride 106 mmol/L (96-108); Globulin 2.6 gm/dL (2.2-3.7); Glomerular Filtration Rate 83; Glucose 238 mg/dL (70-105); Lactate Dehydrogenase 258 U/L (135-225); Phosphorous 0.7 mg/dL (2.5-4.5); Triglycerides 453 mg/dL (<150); Uric Acid 7.5 mg/dL (2.5-8.0)
[2022-12-26] MEDS: INSULIN GLARGINE, HUMAN 1 UNIT/0.01 ML SQ SCH (08:32)
[2022-12-26] MEDS ORDERED: POTASSIUM PHOSPHATE 40 MEQ in DEXTROSE 5% IN WATER 500 ML IV ONE ×2 (09:00→16:23)
[2022-12-26] MEDS: METOPROLOL SUCCINATE 50 MG TAB.XL.24H PO SCH (09:26)
[2022-12-26] MEDS: NEUTRA PHOS 1 PACKET PO SCH ×2 (09:38→21:07)
[2022-12-26] MEDS: PHOSPHORUS 250 MG TABLET PO SCH ×2 (09:38→21:07)
[2022-12-26 10:30] LABS: Hemoglobin A1C 9.9 % Hgb (4.0-6.0)
[2022-12-26] MEDS: DEXTROSE 5%-1/2NS 1,000 ML IV SCH ×2 (11:10→19:29)
[2022-12-26 15:59] LABS: Phosphorous 0.5 mg/dL (2.5-4.5)
[2022-12-26 16:02] LABS: Blood Urea Nitrogen 6 mg/dL (6-20); Calcium 7.9 mg/dL (8.6-10.4); Carbon Dioxide 14 mmol/L (22-30); Chloride 110 mmol/L (96-108); Glomerular Filtration Rate 118; Glucose 123 mg/dL (70-105)
[2022-12-26] MEDS ORDERED: POTASSIUM CHLORIDE 80 MEQ in DEXTROSE 5% IN WATER 1,000 ML IV ONE (16:25)
[2022-12-27] MEDS: DEXTROSE 5%-1/2NS 1,000 ML IV SCH ×4 (00:54→17:03)
[2022-12-27] MEDS ORDERED: DEXTROSE 50% 50 ML VIAL IV PRN ×2 (02:04→16:42)
[2022-12-27] MEDS ORDERED: DEXTROSE 50% 50 ML SYRINGE IV ONE (02:06)
[2022-12-27] MEDS: 0.9 % SODIUM CHLORIDE 1,000 ML IV SCH (03:10)
[2022-12-27] MEDS ORDERED: DEXTROSE 50% 50 ML SYRINGE IV PRN (06:30)
[2022-12-27 06:57] LABS: Basophils # (Auto) 0.02 K/mcL (0.00-0.30); Basophils % (Auto) 0.3 % (0.0-2.0); Eosinophils # (Auto) 0.01 K/mcL (0.00-0.70); Eosinophils % (Auto) 0.2 % (0.0-7.0); Hematocrit 36.7 % (34.1-44.9); Hemoglobin 12.6 g/dL (11.2-15.7); Lymphocytes # (Auto) 1.66 K/mcL (1.50-4.80); Lymphocytes % (Auto) 25.7 % (15.5-49.0); Mean Cell Volume 92.2 fL (80.0-100.0); Mean Corpuscular HGB Conc 34.3 g/dL (31.0-36.0); Mean Platelet Volume 10.2 fL (8.8-12.5); Monocytes # (Auto) 0.59 K/mcL (0.10-0.90); Monocytes % (Auto) 9.1 % (1.0-12.0); Neutrophils % (Auto) 64.4 % (38.0-78.0); Platelet Count 124 K/mcL (140-440); RBC 3.98 M/mcL (3.59-5.38); Red Cell Distribution Width 11.9 % (11.5-14.5); WBC 6.5 K/mcL (4.5-11.0)
[2022-12-27] MEDS: PANTOPRAZOLE 40 MG VIAL IV SCH (07:22)
[2022-12-27 07:24] LABS: Beta Hydroxybutyrate 0.16 mmol/L (<0.27)
[2022-12-27 07:26] LABS: ALT/SGPT 29 U/L (<40); AST/SGOT 45 U/L (<32); Albumin 3.6 gm/dL (3.2-5.2); Albumin/Globulin Ratio 1.8 (1.0-2.3); Alkaline Phosphatase 65 U/L (39-117); Bilirubin,Direct < 0.2 mg/dL (0-0.3); Bilirubin,Total 0.5 mg/dL (0.1-1.0); Blood Urea Nitrogen 2 mg/dL (6-20); Carbon Dioxide 15 mmol/L (22-30); Chloride 112 mmol/L (96-108); Glomerular Filtration Rate 125; Glucose 146 mg/dL (70-105); Lactate Dehydrogenase 266 U/L (135-225); Phosphorous 1.6 mg/dL (2.5-4.5); Triglycerides 75 mg/dL (<150)
[2022-12-27] MEDS: ENOXAPARIN 40 MG/0.4 ML SYRINGE SQ SCH (08:30)
[2022-12-27] MEDS: POTASSIUM CHLORIDE 20 MEQ TABLET PO PRN (08:30)
[2022-12-27] MEDS: METOPROLOL SUCCINATE 50 MG TAB.XL.24H PO SCH (08:31)
[2022-12-27] MEDS: MULTIVIT,THER IRON,CA,FA & MIN 1 TABLET PO SCH (08:31)
[2022-12-27] MEDS: FOLIC ACID 1 MG TABLET PO SCH (08:31)
[2022-12-27] MEDS ORDERED: INSULIN GLARGINE, HUMAN 1 UNIT/0.01 ML SQ SCH (09:00)
[2022-12-27] MEDS ORDERED: ALPRAZolam 0.5 MG TABLET PO PRN (09:18)
[2022-12-27] MEDS: THIAMINE 100 MG in 0.9 % SODIUM CHLORIDE 50 ML IV SCH (09:26)
[2022-12-27] MEDS: INSULIN GLARGINE, HUMAN 1 UNIT/0.01 ML SQ SCH (09:29)
[2022-12-27] MEDS ORDERED: POTASSIUM PHOSPHATE 40 MEQ in DEXTROSE 5% IN WATER 500 ML IV SCH (10:00)
[2022-12-27 10:17] LABS: ABG Methemoglobin 0.2 % (0.4-1.5); Total Hemoglobin 14.2 gm/Dl (12.0-15.0); VBG Base Excess -7 (-2-3); VBG HCO3 14.6 mmol/L (24.0-28.0); VBG Oxygen Saturation 90.8 % (40.0-70.0); VBG PCO2 22.1 mmHg (41.0-51.0); VBG PH 7.44 U (7.32-7.42); VBG Total CO2 15.3 mmol/L (25.0-29.0)
--- NOTE | 2022-12-27 14:22 | Internal Med Progress Note ---
SUBJECTIVE Subjective Patient information: Note initiated : 12/27/22 at 2:20 pm Service Date, if different from initiated Date: [] Patient: Lou Baum a 37 y/o F admitted on 12/26/22 for N/V/D. Chief Complaint: [] Additional PMFSH (Level 3 Only): Ms. Baum is a 37 year old F Presents to minor care for nausea vomiting and lightheadedness and some mucousy stool. Also found to have some mildly elevated sugars. Was treated sent home. Patient came back to the ED complaining of continued abdominal pain nausea vomiting feeling like she is not getting any better. History is obtained from the chart as patient is encephalopathic at this time. Sounds like she has been vomiting for 3 to 4 days and having loose stools. Pain was noted in the right upper quadrant. In the ED she was mildly tachycardic and mildly tachypneic. Found to be in DKA. With a blood glucose 343 initially. Sodium was 126 but not corrected for hyperglycemia. She had a potassium of 6.3 and a bicarb of 4. Mild transaminitis. Beta hydroxybutyric acid 8.65. Lactate 2.3 initially but did increase. She was treated for hyper per kalemia in the ED. Given several liters of IV fluids. Insulin drip ordered but never started until she got to the ICU which is about the time that she started becoming agitated and restless tachycardic and tachypneic. Also found out that she was a heavy drinker using whiskey daily. Patient put on CIWA protocol and given IV Ativan. Her mental status continued to worsen and she became continually tachycardic and tachypneic. Stat VBG showed a pH of 6.75. Blood glucose had also been increasing as the insulin drip had not been started as ordered. Stat bicarb 3 Amps given. Shortly thereafter patient's vital signs and mentation started to gradually improved. Follow-up chemistry showed sodium at 134 and potassium down to 4.7. We will need to follow chemistry closely and may add potassium to IV fluids. preg screen neg Update: pt developed fever this morning, no leukcytosis, BC pending, no respiratory symptoms and UA not indicative of infection, ?etoh w/d, CT brain/abd/pelvis no acute but with fatty liver. pt drinks 2-6 drinks whiskey daily. mentation gradually improving, acid-base status responding to treatment, still critical state, blood pressure briefly hypotensive episodes, monitoring 12/27. Patient blood glucose is fluctuating, this morning was 170 and then went up to 270 on the same insulin drip. Patient reported her mother of hypoglycemia and she is paranoid when she was feeling sick few days ago she stopped taking her Tresiba. Counseled on compliance. She also reported she has PVC and that is why she takes metoprolol. Her heart rate was elevated at 140 this morning, metoprolol home dose was not given yet. Her CIWA score is 2 only. She still on D5W half-normal saline which will be discontinued. Beta- hydroxybutyrate normalized. Gap is closing and acidosis resolving Review of system No fever or chills Reports no chest pain, palpitation No nausea vomiting diarrhea or abdominal pain No hematuria, dysuria No excessive thirst or polyuria Alert and oriented denies any focal deficits Reports always had some anxiety PHYSICAL EXAM on admit General: Alert and awake, sitting up, in no acute distress Eyes/N/T: EOMI, no scleral icterus, PERRL, dry MM Head/Neck: neck supple, full ROM, normocephalic atraumatic CV: S1 and S2, sinus tachycardia, no murmurs heard Pulm: Chest is clear bilaterally Abd: soft, nontender, +BS x4 Ext: no clubbing/cyanosis/edema, nontender Neuro: Alert and oriented, no focal deficits Psychiatric: Appropriate mood and affect Skin: warm/dry, normal color A/P Narrative: A: *DKA(DM1), Severe: -a1c 9.9 *Severe AG Met acidosis with lactic acidosis: 2/2 above *Metabolic encephalopathy, severe: 2/2 above, ?seizure o/n *N/V/Diarrhea/Abd pain: 2/2 above -CT imaging unremarkable except for fatty liver *Hyperkalemia: w/spiked t-waves, s/p treatment *Hyponatremia & severe Hypophosphatemia: *Volume depletion/hemoconcentration: *ETOH abuse: and suspected component of withdrawal -2 up to 6 drinks per day *HTN/HLD: *Anxiety/depression: On Ativan at home *h/o asthma: *Transaminitis: 2/2 fatty liver *Macrocytosis: Check B12/folate, likely etoh induced Hypokalemia, will replace P: -DC IV fluid -Continue insulin gtt until blood glucose less than 200. Start patient on home dose long-acting insulin. Plan to start on medium dose insulin sliding scale -Gap is closing, acidosis resolving Replace potassium -Monitor renal function/UOP -Monitor and replace electrolytes as needed -monitor Lfts -CIWA, MVI/thiamine/folate, prn ativan -cont home BB, prn nebs -b12/folate -Home medication reconciliation -Referral to chemical educator -Referral upon discharge digital account supervisor -ppx: Lovenox / ppi Time Spent With Patient Time: Total time spent is greater than 50% in coordination of care (as documented) at patient's floor/unit and/or counseling patient: Critical Care Time: Yes Total Critical Care Time: 40 Constitutional Vitals: Vital Signs Temp Pulse Resp BP Pulse Ox O2 Del Method 100.8 F H 109 H 23 H 106/83 100 Room Air 12/27/22 12:15 12/27/22 13:00 12/27/22 13:00 12/27/22 13:00 12/27/22 13:00 12/27/22 13:00 Period Temp Pulse Resp BP Sys/Eid Pulse Ox O2 Del Method O2 Flow Rate Last 24 Hr 99.6 F-101.0 F 98-117 19-28 86-114/64-88 97-100 Room Air-Room Air Intake and Output 12/27/22 12/27/22 12/27/22 03:59 11:59 19:59 Intake Total 2807.0909 1380 250 Output Total 2450 450 Balance 357.0909 930 250 Weight 68.81 kg 68.81 kg Patient Weight 12/28/22 03:59 Weight 68.81 kg Intake & Output: Intake & Output 12/27/22 12/27/22 12/27/22 03:59 11:59 19:59 Intake Total 2807.0909 1380 250 Output Total 2450 450 Balance 357.0909 930 250 Weight 68.81 kg 68.81 kg Intake: IV 2687.0909 1080 10 Dextrose 5%-1/2Ns IV Solution 1 1000 1000 ,000 ml @ 150 mls/hr IV .[id number] [facility] Rx#:[id number] HumuLIN R 50 UNIT In Sodium 138 29 10 Chloride 0.9% 99.5 ml @ Per Protocol IV DUR [facility] Rx#: [id number] Potassium Chloride 80 Meq In 1040 Dextrose 5% in Water 1,000 ml @ 130 mls/hr IV ONCE ONE Rx#: [id number] Potassium Phosphate 40 Meq In 509.0909 Dextrose 5% in Water 500 ml @ 127.273 mls/hr IV ONCE ONE Rx#: [id number] Vitamin B1 100 mg In Sodium 51 Chloride 0.9% 50 ml @ 50 mls/hr IV DAILY [facility] Rx#:[id number] Oral 120 300 240 Output: Urine Catheter Amount 2450 450 Other: Meal Lunch Percent of Meal Consumed 50% Feeding Ability Independent Urine Appearance Clear Uretheral (Levy) Clear Urine Color Yellow Uretheral (Levy) Yellow Stool Size Small Large Stool Color Green Brown Stool Consistency Soft Liquid Loose # Bowel Movements 1 OBJ DATA Labs 12/27/22 05:48 12/27/22 05:48 Labs: Abnormal Lab Results 12/27/22 12/27/22 12/27/22 09:48 05:48 05:48 Hgb Hct POC Hct MCV Plt Count 124 L Immature Gran % (Auto) Neut % (Auto) Lymph % (Auto) Lymph # (Auto) [place] # (Auto) Immature Gran # ABG Methemoglobin 0.2 L VBG pH 7.44 H POC VBG pH VBG pCO2 22.1 L POC VBG pCO2 at Temp VBG pO2 129.0 H POC VBG pO2 VBG HCO3 14.6 L POC VBG HCO3 VBG Total CO2 15.3 L POC VBG Total CO2 VBG O2 Saturation 90.8 H POC Venous O2 Sat VBG Base Excess -7 L POC VBG Base Excess VBG Lactic Acid Carboxyhemoglobin 7.5 H POC Sodium Sodium POC Potassium Potassium POC Chloride Chloride 112 H Carbon Dioxide 15 L POC Total CO2 Anion Gap POC Anion Gap BUN 2 L Creatinine 0.5 L Glucose 146 H POC Glucose Hemoglobin A1c Osmolality Calcium 8.0 L POC WB Ioniz Calcium Phosphorus 1.6 L Magnesium AST 45 H ALT Lactate Dehydrogenase 266 H Total Protein 5.6 L Albumin Globulin 2.0 L Triglycerides Beta-Hydroxybutyrate Prolactin Urine Protein Urine Glucose (UA) Urine Ketones Hyaline Casts Urine Mucus U Benzodiazepines Scrn 12/26/22 12/26/22 12/26/22 15:00 08:36 08:34 Hgb Hct POC Hct MCV Plt Count Immature Gran % (Auto) Neut % (Auto) Lymph % (Auto) Lymph # (Auto) [place] # (Auto) Immature Gran # ABG Methemoglobin VBG pH POC VBG pH 7.29 L VBG pCO2 POC VBG pCO2 at Temp 16.0 L* VBG pO2 POC VBG pO2 VBG HCO3 POC VBG HCO3 7.7 L* VBG Total CO2 POC VBG Total CO2 8.0 L VBG O2 Saturation POC Venous O2 Sat VBG Base Excess POC VBG Base Excess -19.0 L VBG Lactic Acid 2.5 H Carboxyhemoglobin POC Sodium Sodium POC Potassium Potassium 3.1 L POC Chloride Chloride 110 H Carbon Dioxide 14 L POC Total CO2 Anion Gap POC Anion Gap BUN Creatinine Glucose 123 H POC Glucose Hemoglobin A1c Osmolality Calcium 7.9 L POC WB Ioniz Calcium Phosphorus 0.5 L Magnesium 1.4 L AST ALT Lactate Dehydrogenase Total Protein Albumin Globulin Triglycerides Beta-Hydroxybutyrate 4.35 H Prolactin Urine Protein Urine Glucose (UA) Urine Ketones Hyaline Casts Urine Mucus U Benzodiazepines Scrn 12/26/22 12/26/22 12/26/22 05:35 05:31 05:18 Hgb Hct POC Hct MCV Plt Count Immature Gran % (Auto) Neut % (Auto) Lymph % (Auto) Lymph # (Auto) [place] # (Auto) Immature Gran # ABG Methemoglobin VBG pH POC VBG pH 7.13 L* VBG pCO2 POC VBG pCO2 at Temp 16.6 L* VBG pO2 POC VBG pO2 VBG HCO3 POC VBG HCO3 5.6 L* VBG Total CO2 POC VBG Total CO2 6.0 L VBG O2 Saturation POC Venous O2 Sat VBG Base Excess POC VBG Base Excess -24.0 L VBG Lactic Acid 4.2 H* Carboxyhemoglobin POC Sodium Sodium POC Potassium Potassium POC Chloride 117 H Chloride Carbon Dioxide POC Total CO2 8.0 L* Anion Gap POC Anion Gap 23.0 H BUN Creatinine Glucose POC Glucose 229 H Hemoglobin A1c 9.9 H Osmolality Calcium POC WB Ioniz Calcium 1.14 L Phosphorus Magnesium AST ALT Lactate Dehydrogenase Total Protein Albumin Globulin Triglycerides Beta-Hydroxybutyrate Prolactin Urine Protein Urine Glucose (UA) Urine Ketones Hyaline Casts Urine Mucus U Benzodiazepines Scrn 12/26/22 12/26/22 12/26/22 05:18 05:18 03:45 Hgb Hct POC Hct 51.0 H MCV Plt Count 128 L Immature Gran % (Auto) 0.6 H Neut % (Auto) 80.8 H Lymph % (Auto) 9.1 L Lymph # (Auto) 0.90 L [place] # (Auto) 0.92 H Immature Gran # 0.06 H ABG Methemoglobin VBG pH POC VBG pH VBG pCO2 POC VBG pCO2 at Temp VBG pO2 POC VBG pO2 VBG HCO3 POC VBG HCO3 VBG Total CO2 POC VBG Total CO2 VBG O2 Saturation POC Venous O2 Sat VBG Base Excess POC VBG Base Excess VBG Lactic Acid Carboxyhemoglobin POC Sodium Sodium POC Potassium Potassium POC Chloride 118 H Chloride Carbon Dioxide 6 L* POC Total CO2 6.0 L* Anion Gap 30.0 H POC Anion Gap 21.0 H BUN Creatinine Glucose 238 H POC Glucose 321 H Hemoglobin A1c Osmolality Calcium 8.2 L POC WB Ioniz Calcium 1.10 L Phosphorus 0.7 L Magnesium AST 49 H ALT Lactate Dehydrogenase 258 H Total Protein Albumin Globulin Triglycerides 453 H Beta-Hydroxybutyrate Prolactin Urine Protein Urine Glucose (UA) Urine Ketones Hyaline Casts Urine Mucus U Benzodiazepines Scrn 12/26/22 12/26/22 12/26/22 03:41 01:29 01:23 Hgb Hct POC Hct 51.0 H MCV Plt Count Immature Gran % (Auto) Neut % (Auto) Lymph % (Auto) Lymph # (Auto) [place] # (Auto) Immature Gran # ABG Methemoglobin VBG pH POC VBG pH 6.92 L* 6.75 L* VBG pCO2 POC VBG pCO2 at Temp 18.2 L* 14.2 L* VBG pO2 POC VBG pO2 81 H 80 H VBG HCO3 POC VBG HCO3 3.8 L* 2.0 L* VBG Total CO2 POC VBG Total CO2 < 5.0 L < 5.0 L VBG O2 Saturation POC Venous O2 Sat 86.0 H 77.0 H VBG Base Excess POC VBG Base Excess -29.0 L < -30.0 L* VBG Lactic Acid 6.6 H* 4.8 H* Carboxyhemoglobin POC Sodium Sodium POC Potassium Potassium POC Chloride 115 H Chloride Carbon Dioxide POC Total CO2 < 5.0 L* Anion Gap POC Anion Gap BUN Creatinine Glucose POC Glucose 476 H* Hemoglobin A1c Osmolality Calcium POC WB Ioniz Calcium Phosphorus Magnesium AST ALT Lactate Dehydrogenase Total Protein Albumin Globulin Triglycerides Beta-Hydroxybutyrate Prolactin Urine Protein Urine Glucose (UA) Urine Ketones Hyaline Casts Urine Mucus U Benzodiazepines Scrn 12/26/22 12/26/22 12/25/22 01:20 01:20 23:00 Hgb Hct POC Hct MCV Plt Count Immature Gran % (Auto) Neut % (Auto) Lymph % (Auto) Lymph # (Auto) [place] # (Auto) Immature Gran # ABG Methemoglobin VBG pH POC VBG pH 6.88 L* VBG pCO2 POC VBG pCO2 at Temp 25.4 L VBG pO2 POC VBG pO2 VBG HCO3 POC VBG HCO3 4.8 L* VBG Total CO2 POC VBG Total CO2 6.0 L VBG O2 Saturation POC Venous O2 Sat 30.0 L VBG Base Excess POC VBG Base Excess -28.0 L VBG Lactic Acid 2.3 H Carboxyhemoglobin POC Sodium Sodium POC Potassium Potassium POC Chloride Chloride Carbon Dioxide POC Total CO2 Anion Gap POC Anion Gap BUN Creatinine Glucose POC Glucose Hemoglobin A1c Osmolality 325 H Calcium POC WB Ioniz Calcium Phosphorus Magnesium AST ALT Lactate Dehydrogenase Total Protein Albumin Globulin Triglycerides Beta-Hydroxybutyrate Prolactin 73.5 H Urine Protein Urine Glucose (UA) Urine Ketones Hyaline Casts Urine Mucus U Benzodiazepines Scrn 12/25/22 12/25/22 12/25/22 22:00 21:56 21:56 Hgb Hct POC Hct MCV Plt Count Immature Gran % (Auto) Neut % (Auto) Lymph % (Auto) Lymph # (Auto) [place] # (Auto) Immature Gran # ABG Methemoglobin VBG pH POC VBG pH VBG pCO2 POC VBG pCO2 at Temp VBG pO2 POC VBG pO2 VBG HCO3 POC VBG HCO3 VBG Total CO2 POC VBG Total CO2 VBG O2 Saturation POC Venous O2 Sat VBG Base Excess POC VBG Base Excess VBG Lactic Acid Carboxyhemoglobin POC Sodium Sodium POC Potassium Potassium POC Chloride Chloride Carbon Dioxide POC Total CO2 Anion Gap POC Anion Gap BUN Creatinine Glucose POC Glucose Hemoglobin A1c Osmolality Calcium POC WB Ioniz Calcium Phosphorus Magnesium AST ALT Lactate Dehydrogenase Total Protein Albumin Globulin Triglycerides Beta-Hydroxybutyrate 8.65 H Prolactin Urine Protein 100 A Urine Glucose (UA) >=500 A Urine Ketones 80 A Hyaline Casts 5 H Urine Mucus Few A U Benzodiazepines Scrn Suspect positive A 12/25/22 12/25/22 12/25/22 21:42 21:24 21:05 Hgb Hct POC Hct 52.0 H 53.0 H 53.0 H MCV Plt Count Immature Gran % (Auto) Neut % (Auto) Lymph % (Auto) Lymph # (Auto) [place] # (Auto) Immature Gran # ABG Methemoglobin VBG pH POC VBG pH VBG pCO2 POC VBG pCO2 at Temp VBG pO2 POC VBG pO2 VBG HCO3 POC VBG HCO3 VBG Total CO2 POC VBG Total CO2 VBG O2 Saturation POC Venous O2 Sat VBG Base Excess POC VBG Base Excess VBG Lactic Acid Carboxyhemoglobin POC Sodium 131 L 123 L 130 L Sodium POC Potassium 6.0 H* > 9.0 H* 6.3 H* Potassium POC Chloride 109 H 110 H 111 H Chloride Carbon Dioxide POC Total CO2 8.0 L* 8.0 L* 7.0 L* Anion Gap POC Anion Gap 21.0 H 19.0 H BUN Creatinine Glucose POC Glucose 355 H 333 H 331 H Hemoglobin A1c Osmolality Calcium POC WB Ioniz Calcium 1.04 L Phosphorus Magnesium AST ALT Lactate Dehydrogenase Total Protein Albumin Globulin Triglycerides Beta-Hydroxybutyrate Prolactin Urine Protein Urine Glucose (UA) Urine Ketones Hyaline Casts Urine Mucus U Benzodiazepines Scrn 12/25/22 12/25/22 21:04 21:04 Hgb 16.5 H Hct 52.7 H POC Hct MCV 101.2 H Plt Count Immature Gran % (Auto) 1.3 H Neut % (Auto) Lymph % (Auto) Lymph # (Auto) [place] # (Auto) 0.93 H Immature Gran # 0.12 H ABG Methemoglobin VBG pH POC VBG pH VBG pCO2 POC VBG pCO2 at Temp VBG pO2 POC VBG pO2 VBG HCO3 POC VBG HCO3 VBG Total CO2 POC VBG Total CO2 VBG O2 Saturation POC Venous O2 Sat VBG Base Excess POC VBG Base Excess VBG Lactic Acid Carboxyhemoglobin POC Sodium Sodium 126 L POC Potassium Potassium 6.3 H* POC Chloride Chloride 93 L Carbon Dioxide 4 L* POC Total CO2 Anion Gap 29.0 H POC Anion Gap BUN Creatinine Glucose 334 H POC Glucose Hemoglobin A1c Osmolality Calcium POC WB Ioniz Calcium Phosphorus Magnesium AST 44 H ALT 46 H Lactate Dehydrogenase Total Protein 8.8 H Albumin 5.3 H Globulin Triglycerides Beta-Hydroxybutyrate Prolactin Urine Protein Urine Glucose (UA) Urine Ketones Hyaline Casts Urine Mucus U Benzodiazepines Scrn Meds: Medications Acetaminophen (Acetaminophen 325 Mg Tablet) 650 mg PO Q6HP PRN PRN Reason: fever > 101 Last Admin: 12/26/22 19:17 Dose: 650 mg Albuterol/Ipratropium (Ipratropium/Albuterol 3 Ml Ampul.Neb) 3 ml NEB Q4HP PRN PRN Reason: Shortness Of Breath Last Admin: 12/27/22 12:55 Dose: 3 ml Alprazolam (Alprazolam 0.5 Mg Tablet) 0.5 mg PO BIDP PRN PRN Reason: Anxiety Dextrose (Dextrose 50% 50 Ml Syringe) 25 ml IV PRN PRN PRN Reason: Hypoglycemia Diagnostic Test (Pha) (Accu-Chek 1 Each Strip) 1 each FS Q1 JOSEFA Last Admin: 12/27/22 12:15 Dose: 1 each Enoxaparin Sodium (Enoxaparin 40 Mg/0.4 Ml Syringe) 40 mg SQ DAILY JOSEFA Last Admin: 12/27/22 08:30 Dose: 40 mg Folic Acid (Folic Acid 1 Mg Tablet) 1 mg PO DAILY JOSEFA Last Admin: 12/27/22 08:31 Dose: 1 mg Insulin Human Regular 50 unit/ (Sodium Chloride) 100 mls @ 0 mls/hr IV DUR JOSEFA; Protocol Last Titration: 12/27/22 13:00 Dose: 4 unit/hr, 8 mls/hr Potassium Chloride 40 meq/ (Dextrose) 520 mls @ 130 mls/hr IV UD PRN PRN Reason: Potassium Level < 3 Magnesium Sulfate (Magnesium Sulfate) 2 gm in 50 mls @ 25 mls/hr IV UD PRN PRN Reason: Magnesium Level </= 1.6 Last Infusion: 12/26/22 19:35 Dose: Infused Dextrose/Sodium Chloride (Dextrose 5%-1/2ns Iv Solution) 1,000 mls @ 150 mls/hr IV .Q6H40M JOSEFA Last Admin: 12/27/22 09:26 Dose: 150 mls/hr Potassium Phosphate 40 meq/ (Dextrose) 509.0909 mls @ 84.848 mls/hr IV ONCE JOSEFA Stop: 12/27/22 19:00 Last Admin: 12/27/22 10:18 Dose: 84.848 mls/hr Iron Carb/Multivit/[place]/Folic Acid (Multivit,Ther Iron,Ca,Fa & Min 1 Tablet) 1 tab PO DAILY [facility] Last Admin: 12/27/22 08:31 Dose: 1 tab Lorazepam (Lorazepam 2 Mg/Ml Vial) 0 mg IV Q1HP PRN; Protocol PRN Reason: Alcohol Withdrawal/Assess CIWA Last Admin: 12/26/22 00:49 Dose: 3 mg Metoprolol Succinate (Metoprolol Succinate 50 Mg Tab.Xl.24h) 50 mg PO QDAY [facility] Last Admin: 12/27/22 08:31 Dose: 50 mg Ondansetron HCl (Ondansetron 4 Mg/2 Ml Vial) 4 mg IV Q4HP PRN PRN Reason: Nausea And Vomiting Last Admin: 12/26/22 21:18 Dose: 4 mg Pantoprazole Sodium (Pantoprazole 40 Mg Tablet) 40 mg PO QAMAC [facility] Tresiba 26 dose SC DAILY [facility] Polyethylene Glycol (Polyethylene Glycol 3350 17 Gm Packet) 17 gm PO DAILYP PRN PRN Reason: Constipation Potassium Chloride (Potassium Chloride 20 Meq Tablet) 40 meq PO UD PRN PRN Reason: Potassium Level of 3-3.5 Last Admin: 12/27/22 08:30 Dose: 40 meq Potassium Chloride (Potassium Chloride 20 Meq Tablet) 40 meq PO UD PRN PRN Reason: Potassium Level < 3 Senna (Sennosides 1 Tablet) 2 tab PO DAILYP PRN PRN Reason: Constipation ABG Interpretation ABG results: 12/27/22 09:48 ABG Methemoglobin 0.2 L VBG pH 7.44 H VBG pCO2 22.1 L VBG pO2 129.0 H VBG HCO3 14.6 L VBG Total CO2 15.3 L VBG O2 Saturation 90.8 H VBG Base Excess -7 L A/P Time Spent With Patient Time: Total time spent is greater than 50% in coordination of care (as documented) at patient's floor/unit and/or counseling patient:
[2022-12-27] MEDS: INSULIN REGULAR, HUMAN 50 UNIT in 0.9 % SODIUM CHLORIDE 99.5 ML IV SCH (16:41)
[2022-12-27] MEDS ORDERED: DEXTROSE 31 GM ORAL.SUSP PO PRN (16:42)
[2022-12-27] MEDS: INSULIN LISPRO 1 UNIT/0.01 ML UNIT SQ SCH ×3 (17:35→21:12)
[2022-12-28] MEDS ORDERED: PANTOPRAZOLE 40 MG TABLET PO SCH (07:30)
[2022-12-28 07:50] LABS: Basophils # (Auto) 0.03 K/mcL (0.00-0.30); Basophils % (Auto) 0.7 % (0.0-2.0); Eosinophils # (Auto) 0.05 K/mcL (0.00-0.70); Eosinophils % (Auto) 1.2 % (0.0-7.0); Hematocrit 37.8 % (34.1-44.9); Hemoglobin 12.2 g/dL (11.2-15.7); Lymphocytes # (Auto) 1.08 K/mcL (1.50-4.80); Mean Cell Volume 99.2 fL (80.0-100.0); Mean Corpuscular HGB Conc 32.3 g/dL (31.0-36.0); Mean Platelet Volume 10.1 fL (8.8-12.5); Monocytes # (Auto) 0.34 K/mcL (0.10-0.90); Monocytes % (Auto) 7.9 % (1.0-12.0); Platelet Count 106 K/mcL (140-440); RBC 3.81 M/mcL (3.59-5.38); Red Cell Distribution Width 12.7 % (11.5-14.5); WBC 4.3 K/mcL (4.5-11.0)
[2022-12-28 08:11] LABS: ALT/SGPT 29 U/L (<40); AST/SGOT 40 U/L (<32); Albumin 3.4 gm/dL (3.2-5.2); Albumin/Globulin Ratio 1.6 (1.0-2.3); Alkaline Phosphatase 71 U/L (39-117); Bilirubin,Total 0.8 mg/dL (0.1-1.0); Blood Urea Nitrogen 3 mg/dL (6-20); Calcium 8.6 mg/dL (8.6-10.4); Carbon Dioxide 19 mmol/L (22-30); Chloride 108 mmol/L (96-108); Globulin 2.1 gm/dL (2.2-3.7); Glomerular Filtration Rate 125; Glucose 263 mg/dL (70-105)
[2022-12-28] MEDS: ENOXAPARIN 40 MG/0.4 ML SYRINGE SQ SCH (08:22)
[2022-12-28] MEDS: POTASSIUM CHLORIDE 20 MEQ TABLET PO PRN (08:22)
[2022-12-28] MEDS: MULTIVIT,THER IRON,CA,FA & MIN 1 TABLET PO SCH (08:22)
[2022-12-28] MEDS: FOLIC ACID 1 MG TABLET PO SCH (08:22)
[2022-12-28] MEDS: INSULIN LISPRO 1 UNIT/0.01 ML UNIT SQ SCH ×4 (08:23→12:17)
[2022-12-28] MEDS ORDERED: TRESIBA SC SCH ×2 (09:00)
[2022-12-28] MEDS ORDERED: METOPROLOL SUCCINATE 50 MG TAB.XL.24H PO SCH (09:00)
[2022-12-28] MEDS: METOPROLOL SUCCINATE 50 MG TAB.XL.24H PO SCH (09:35)
--- NOTE | 2022-12-28 12:39 | Discharge Summary ---
Discharge Provider Provider IMPORTANT FOLLOW-UP INFORMATION FOR PCP: Patient information: Note initiated : 12/28/22 at 12:34 pm Service Date, if different from initiated Date: [] Patient: Lou Baum 37 y/o F admitted on 12/26/22 for N/V/D. Chief Complaint: [] Date of admission: 12/26/22 00:04 Discharge date: 12/28/22 Primary care physician: Kady Warren NP Consults: 12/25/22 Consult to Physician [CONS] Stat Comment: Consulting Provider: Jj Leonard Reason For Exam: Physician to Consult COURSE Hospital Course Hospital course: Ms. Baum is a 37 year old female with history of type 1 diabetes mellitus on Tresiba, alcohol use disorder, asthma, anxiety and depression presented with abdominal pain, nausea, vomiting, lightheadedness, confusion and was found to be in diabetic ketoacidosis. Patient reported her mother of hypoglycemia, she is paranoid about going hypoglycemic, when she was feeling sick few days ago she stopped taking her Tresiba.On presentation patient was tachycardic, tachypneic and confused. CBC showed no leukocytosis, evidence of hemoconcentration. VBG showed pH of 6.75, bicarb 4.8. Beta-hydroxybutyrate was elevated at 8.65. Chemistries showed hyper kalemia of 6.3, bicarb of 4. Mild transaminitis consistent with alcohol abuse. Initial lactate was 2.3 but increased to 6.6 and then trended down. Patient was started on DKA protocol and was given aggressive IV fluid resuscitation. Patient was in metabolic encephalopathy agitated and restless. She was tachypneic and tachycardic. Pt admits to drinking 2-6 whisky daily, she was started on CIWA protocol. Patient was admitted to ICU and kept on insulin drip. There was no evidence of infectious etiology, no respiratory symptoms, no UTI. CT brain, abdomen and pelvis showed no acute pathology but fatty liver. Patient reports she has history of PVCs and takes metoprolol for that. She was noted to be tachycardic and her metoprolol dose was increased. Over the course of next couple days her DKA resolved, anion gap closed, acidosis resolved, beta-hydroxybutyrate normalized. Patient was started on home dose Tresiba and sliding scale. Blood glucose was still elevated. Patient reported that she has been keeping her blood glucose over 200 since she did not feel good with lower blood glucose but now that in the hospital blood glucose has been able to be better controlled she is now comfortable with tighter control. Recommend increasing Tresiba to 30 units daily, mealtime insulin at 6 units daily and sliding scale. Recommend blood glucose reading to be around 120-140 and adjust insulin dose accordingly. Patient was counseled on compliance with medication. She now feels back to baseline and will be discharged home with follow-up with primary care provider and perinatal educator as an outpatient. Discharge diagnoses Diabetic ketoacidosis. Diabetes mellitus 1, poorly controlled A1c 9.9. Increase Tresiba to 30 units daily, mealtime insulin 6 units with each meal, insulin sliding scale. Follow- up with perinatal educator and PCP. Follow-up with photo editor as an outpatient Severe anion gap metabolic acidosis with lactic acidosis secondary to above, resolved Metabolic encephalopathy, sepsis severe, resolved Nausea, vomiting diarrhea and abdominal pain secondary to above, resolved Fatty liver on CT scan. Transaminitis secondary to that Hyperkalemia, corrected Hyponatremia, resolved Hypokalemia, repleted Hypophosphatemia, corrected Dehydration, resolved EtOH abuse. Patient admits to 2-6 drinks of whiskey a day. She is now committed to cut down on that. He was placed on CIWA protocol during hospitalization however there was not much evidence of severe withdrawal. Counseled on complete alcohol cessation. On multivitamin, folic acid, thiamine. Anxiety and depression. On Ativan home dose Asthma, stable PHYSICAL EXAM General: Alert and awake, sitting up, in no acute distress Eyes/N/T: EOMI, no scleral icterus, PERRL, dry MM Head/Neck: neck supple, full ROM, normocephalic atraumatic CV: S1 and S2, sinus tachycardia, no murmurs heard Pulm: Chest is clear bilaterally Abd: soft, nontender, +BS x4 Ext: no clubbing/cyanosis/edema, nontender Neuro: Alert and oriented, no focal deficits Psychiatric: Appropriate mood and affect Skin: warm/dry, normal color Discharge diagnosis: DKA, hyperkalemia, metabolic encephalopathy, alcohol use disorder Time Spent with Patient Time attestation: Total time spent providing and/or coordinating discharge services: Time spent: Greater than 30 minutes EXAM Constitutional Vitals: Temp Pulse Resp BP Pulse Ox O2 Del Method O2 Flow Rate 97.4 F 116 H 16 113/95 98 Room Air 96 12/28/22 11:17 12/27/22 17:59 12/27/22 23:58 12/28/22 07:26 12/28/22 08:00 12/28/22 08:00 12/27/22 12:55 Discharge Data Data Completed and Pending Labs on day of discharge: Labs from last 24 hours 12/28/22 12/28/22 07:20 07:20 WBC 4.3 L RBC 3.81 Hgb 12.2 Hct 37.8 MCV 99.2 MCH 32.0 MCHC 32.3 RDW 12.7 Plt Count 106 L MPV 10.1 Immature Gran % (Auto) 0.2 Neut % (Auto) 65.0 Lymph % (Auto) 25.0 [place] % (Auto) 7.9 Eos % (Auto) 1.2 Baso % (Auto) 0.7 Lymph # (Auto) 1.08 L [place] # (Auto) 0.34 Eos # (Auto) 0.05 Baso # (Auto) 0.03 Immature Gran # 0.01 Absolute Neutrophils 2.81 Sodium 139 Potassium 3.5 Chloride 108 Carbon Dioxide 19 L Anion Gap 12.0 BUN 3 L Creatinine 0.5 L GFR Calculation 125 Glucose 263 H Calcium 8.6 Total Bilirubin 0.8 AST 40 H ALT 29 Alkaline Phosphatase 71 Total Protein 5.5 L Albumin 3.4 Globulin 2.1 L Albumin/Globulin Ratio 1.6 Preliminary micro results at discharge 12/26/22 06:18 Blood Culture - Preliminary Blood 12/26/22 06:00 Blood Culture - Preliminary Blood Discharge Plan Patient/Caregiver Discharge Instructions Activity: increase activity as tolerated Diet: Consistent Carbohydrate Instructions: Diabetic Ketoacidosis (DC), Abuse of Alcohol (DC), Alcohol Withdrawal (DC) Prescriptions: New insulin lispro [Humalog U-100 Insulin] 100 unit/mL Solution 6 unit subcut AC Qty: 20 0RF Thera M Plus (ferrous fumarat) 9 mg iron-400 mcg Tablet 1 tab PO DAILY Qty: 60 0RF Continued loperamide [Imodium A-D] 2 mg tablet 2 mg PO Q4H PRN (Reason: loose stool) Qty: 30 0RF Rx Instructions: administer after each loose stool until symptoms controlled; do not exceed 8 mg per 24 hrs ezetimibe [Zetia] 10 mg tablet 10 mg PO QDAY alprazolam [Xanax] 0.5 mg tablet 0.5 mg PO QHS PRN (Reason: Anxiety) albuterol sulfate 90 mcg/actuation HFA aerosol inhaler 1 inh INHALATION ONCE insulin lispro [Admelog U-100 Insulin lispro] 100 unit/mL solution 1 sliding scale dose SUB-Q USEASDIRECTD ondansetron 4 mg tablet,disintegrating 4 mg PO Q6H PRN (Reason: nausea and vomiting) Qty: 20 0RF Changed metoprolol succinate 50 mg tablet extended release 24 hr 75 mg PO QDAY Qty: 60 0RF insulin degludec [Tresiba FlexTouch U-200] 200 unit/mL (3 mL) insulin pen 30 unit subcut QDAY 30 Days Qty: 4.5 0RF Other Ambulatory Orders: Wound Care Instructions (CONT) Location: None Selected Ordered By: Bladimir Weaver Follow Up Plan Follow up with: Kady Warren NP-C [Primary Care Provider] - 01/10/23 8:30 am Patient Disposition: Home, Self-Care Prognosis: Critical Rehab Potential: Good Overall status at discharge: patient is not back to baseline Discharge Orders: Discharge Order (Routine); Ordered 12/28/22 Ordered By: Bladimir Weaver
== END 2022-12-28 13:25 | disposition home or self-care (01) | DRG 637 ==
LOC: ED 18:34 → ICU 12-26 00:04
PROVIDERS: ADMIT Internal Medicine; ATTEND Internal Medicine